=== PATIENT | female | born 1960 | race Caucasian/White ===

== ENCOUNTER → 2016-10-08 | Outpatient (CLI) | payer OTHER ==
[2016-10-08 10:22] LABS: RED BLOOD COUNT 4.77 M/UL (4.00-5.10); WHITE BLOOD COUNT 7.1 K/UL (4.5-11.0)
[2016-10-08 10:44] LABS: BUN/CREATININE RATIO 17 (0-10)
== END ==
LOC: MAMO 08:40
PROVIDERS: Internal Medicine Gastroenterology
DX: Z12.31 Encounter for screening mammogram for malignant neoplasm of breast (principal); I10 Essential (primary) hypertension; J44.9 Chronic obstructive pulmonary disease, unspecified; R92.2 Inconclusive mammogram
CPT/HCPCS: 36415; 71020; 80053; 85027; G0202